=== PATIENT | female | born 1960 | race American Indian/Alaskan Native ===

== ENCOUNTER 2017-04-13 07:11 | Day surgery (SDC) | payer BC ==
[2017-04-13 08:23] LABS: Blood Urea Nitrogen 13 mg/dL (7-17)
[2017-04-13] MEDS ORDERED: NACL ONE (09:00)
[2017-04-13] MEDS ORDERED: NITROSTAT SL ONE (09:00)
[2017-04-13 09:33] VITALS: BP 113/72
--- NOTE | 2017-04-13 14:57 | Cat Scan Report ---
LIMITED CT OF THE CHEST PER CT CORONARY ANGIOGRAPHY PROTOCOL: History: Abnormal cardiac stress test. Limited CT of the chest per CT coronary angiography protocol is submitted. The cardiac portion of the exam has been previously interpreted by the [employer]. The included portions of the lungs appear clear without evidence for nodule, mass or infiltrate. The included pleural spaces are clear. No mediastinal or hilar adenopathy is evident. A there is a subtle 1 cm focus of enhancement in the posterior right hepatic lobe on image 61, series 6. This may represent a small cavernous hemangioma. Consider further evaluation with four-phase liver CT with contrast or MRI with contrast is needed. IMPRESSION: Normal limited CT of the chest as noted. Focus of enhancement in the right hepatic lobe which probably represents a cavernous hemangioma. Please see above.
--- NOTE | 2017-04-15 01:16 | Procedure Note ---
[address] ORDERING PHYSICIAN: Kristin Farrar MD INDICATION FOR THE PROCEDURE: Chest pain. DESCRIPTION OF PROCEDURES: The patient received 0.4 mg of nitroglycerin sublingually 4 coronary vasodilation prior to scanning. Using 64 slice MDCT, low dose noncontrast calcium scoring CT was performed with prospective gating followed by contrast enhanced CTA at 0.6 mm in thickness with retrospective gating and 100 mL Isovue 370 IV. The scan was performed from the julieth through the base of the heart. Data was reconstructed using multiple cardiac phases. The heart rate during 3D acquisition was 52 beats per minute. FINDINGS: 1. The calcium score was 0 indicating the absence of calcified atherosclerotic plaque and a very low cardiovascular disease risk. 2. The overall quality of the scan is excellent. 3. This is right dominant circulation. The left main originates from the left coronary cusp and is angiographically normal. 4. The left anterior descending artery is a large caliber, wrap around the apex vessel and is angiographically normal. Moderate sized diagonal arteries are branching off the left anterior descending artery and are angiographically normal. The left circumflex artery is angiographically normal. There is a large caliber OM1 branching off the circumflex artery that is angiographically normal. 5. The right coronary artery is a dominant vessel and originates from the right coronary cusp. The right coronary artery is angiographically normal. 6. The left ventricle is normal in size with preserved systolic function and normal wall motion, left ventricular ejection fraction is measured at 63%. 7. The left atrium is normal in size with 4 pulmonary veins visualized entering the left atrium. No filling defects noted in the left atrial appendage. 8. The right atrium and the right ventricle are grossly normal in size. 9. The visualized segments of the ascending and descending thoracic aorta, pulmonary artery are within normal limits. The aortic valve is trileaflet. 10. No evidence of pericardial effusion. Radiology overread suggesting normal limits with CT of the chest with evidence of a focus of enhancement in the right hepatic lobe which probably represent a cavernous hemangioma. IMPRESSION: 1. Excellent quality scan. 2. Anatomically and angiographically normal right dominant circulation with a 0 calcium score, indicating a very low cardiovascular disease risk. 3. The visualized segments of the aorta and the pulmonary artery are within normal limits. 4. Normal left ventricular size and systolic function with an ejection fraction measured at 63%. 5. Focus of enhancement in the right hepatic lobe which probably represent a cavernous hemangioma. JOB# [id number] DONAL/WILLOW
== END 2017-04-13 09:40 | disposition home or self-care (01) ==
LOC: CATHLABREC 07:11 → EDSTATUS 07:45 → CATHLABREC 09:40
PROVIDERS: ATTEND Internal Medicine Cardiovascular Disease
DX: R07.9 Chest pain, unspecified (principal); R94.39 Abnormal result of other cardiovascular function study
CPT/HCPCS: 36415; 75574; 82565; 84520; Q9967